=== PATIENT | female | born 1960 | race Caucasian/White ===

== ENCOUNTER → 2020-02-20 | Outpatient (CLI) | payer OTHER ==
[~2020-02-20] MED LIST: SUMA50TA17 PO; [UNRECOGNIZED DRUG - OTHER] PO
== END | disposition home or self-care (01) ==
LOC: RAH 13:21
PROVIDERS: ATTEND Internal Medicine
DX: Z12.31 Encounter for screening mammogram for malignant neoplasm of breast (principal)
CPT/HCPCS: 77067

== ENCOUNTER 2023-02-20 21:06 | Inpatient (IN) | payer OTHER ==
[~2023-02-20] VITALS: Ht 162.6 cm; Wt 99.8 kg
[2023-02-20] MEDS ORDERED: ACETAMINOPHEN 500 MG TABLET ONE (21:18)
[2023-02-20 21:29] LABS: BASOPHILS # (AUTO) 0.02 K/uL (0.00-0.20); BASOPHILS % (AUTO) 0.2 % (0.0-5.0); EOSINOPHILS # (AUTO) 0.01 K/uL (0.00-0.70); EOSINOPHILS % (AUTO) 0.1 % (0.0-8.0); HEMATOCRIT 41.3 % (36-48); IMMATURE GRANULOCYTE ABSOLUTE 0.04 K/uL (0-1); LYMPHOCYTES # (AUTO) 0.6 K/uL (1.0-4.8); LYMPHOCYTES % (AUTO) 6.9 % (21.0-51.0); MEAN CORPUSCULAR HEMOGLOBIN 26.2 pg (27.0-33.0); MEAN CORPUSCULAR HGB CONC 32.4 g/dL (32.0-36.0); MEAN CORPUSCULAR VOLUME 80.8 fL (79-99); MONOCYTES % (AUTO) 0.3 % (3.0-13.0); NEUTROPHILS # (AUTO) 8.3 K/uL (1.8-7.7); NEUTROPHILS % (AUTO) 92.1 % (40.0-77.0); PLATELET COUNT (AUTO) 167 K/uL (130-400); RED BLOOD CELL COUNT(AUTO) 5.11 MIL/uL (4.00-5.50)
[2023-02-20] MEDS ORDERED: CEFTRIAXONE 2GM VIAL IVPB ONE (21:30)
[2023-02-20] MEDS ORDERED: 0.9%NACL 1000ML 1,848 ML IV ONE (21:30)
[2023-02-20] MEDS ORDERED: ACETAMINOPHEN 500 MG TABLET PO ONE (21:30)
[2023-02-20 21:31] LABS: APPEARANCE,URINE CLOUDY (CLEAR); BILIRUBIN,URINE NEGATIVE (NEGATIVE); COLOR,URINE DARK-YELLOW (YELLOW); GLUCOSE, URINE (UA) NEGATIVE (NEGATIVE); KETONES,URINE NEGATIVE (NEGATIVE); LEUKOCYTE ESTERASE ,URINE 250 Leu/uL (NEGATIVE); NITRATE,URINE 2+ (NEGATIVE); OCCULT BLOOD,URINE SMALL (NEGATIVE); PH,URINE 5.5 (5.0-8.0); PROTEIN,URINE 50 mg/dL (NEGATIVE); UROBILINOGEN,URINE 0.2 mg/dL (0.2-1.0)
[2023-02-20] MEDS ORDERED: CEFTRIAXONE 2GM VIAL ONE (21:31)
[2023-02-20 21:32] LABS: ADD UA MICROSCOPIC YES
[2023-02-20 21:33] LABS: BACTERIA,URINE MOD /HPF (None Seen); MUCUS,URINE RARE LPF (None Seen); SQUAMOUS EPITHELIAL CELL,UR RARE /HPF (0-2); WBC,URINE TNTC /HPF (0-1)
[2023-02-20 21:38] LABS: AMPHET/METH SCREEN,URINE NEGATIVE (NEGATIVE); BARBITURATE SCREEN, URINE NEGATIVE (NEGATIVE); BENZODIAZEPINES SCREEN,URINE POSITIVE (NEGATIVE); CANNABINOID SCREEN,URINE NEGATIVE (NEGATIVE); COCAINE SCREEN,URINE NEGATIVE (NEGATIVE); OPIATE SCREEN,URINE POSITIVE (NEGATIVE); PHENCYCLIDINE SCREEN,URINE NEGATIVE (NEGATIVE)
[2023-02-20 21:41] LABS: SARS-CoV-2, RNA, NAAT NEGATIVE SARS CoV-2 (NEGATIVE)
[2023-02-20 21:43] LABS: CREATININE 2.1 mg/dL (0.5-1.5); POTASSIUM 3.5 mmol/L (3.5-5.1)
[2023-02-20 21:46] LABS: INFLUENZA TYPE A Negative For Type A (NEGATIVE)
[2023-02-20 21:48] LABS: ALBUMIN 2.8 g/dL (3.5-5.0); BILIRUBIN,TOTAL 1.2 mg/dL (0.2-1.0); MAGNESIUM 1.5 mg/dL (1.80-2.40); TOTAL PROTEIN, SERUM 6.1 g/dL (6.0-8.3)
[2023-02-20] MEDS ORDERED: MAGNESIUM 2GM PREMIX 50ML 50 ML IV ONE (21:55)
[2023-02-20 21:58] LABS: INFLUENZA TYPE B Positive For Type B (NEGATIVE)
[2023-02-20] MEDS ORDERED: OSELTAMIVIR PHOSPHATE 75 MG CAP ONE (22:00)
[2023-02-20] MEDS ORDERED: OSELTAMIVIR PHOSPHATE 75 MG CAP PO ONE (22:00)
[2023-02-20] MEDS ORDERED: 0.9%NACL 1000ML 1,641 ML IV ONE (22:00)
[2023-02-20] MEDS: MAGNESIUM 2GM PREMIX 50ML 50 ML IV SCH (22:01)
[2023-02-20 22:10] LABS: RAPID GROUP A STREP negative (NEGATIVE)
[2023-02-20] MEDS ORDERED: ONDANSETRON 4MG INJ IVP PRN (23:00)
[2023-02-20] MEDS ORDERED: MORPHINE 2 MG SYG IVP PRN (23:00)
[2023-02-20] MEDS: ZOSYN 3.375GM +NS 50ML IVPB SCH (23:14)
[2023-02-21] MEDS ORDERED: LEVOTHYROXINE 100 MCG TABLET ONE (06:02)
[2023-02-21 08:00] VITALS: BP 99/43; PULSE 90; RESP 19; O2SAT 94
[2023-02-21] MEDS: ACETAMINOPHEN 325 MG TAB PO PRN (09:50)
[2023-02-21 10:30] LABS: CREATININE 1.8 mg/dL (0.5-1.5); POTASSIUM 3.4 mmol/L (3.5-5.1)
[2023-02-21] MEDS: ZOSYN 3.375GM +NS 50ML IVPB SCH (11:23)
[2023-02-21 12:00] VITALS: BP 97/54; PULSE 89; RESP 18
[2023-02-21] MEDS: OSELTAMIVIR PHOSPHATE 75 MG CAP PO SCH (13:58)
[2023-02-21] MEDS ORDERED: IPRATROPIUM/ALBUTEROL SULFATE 3 ML SOLUTION IH PRN (14:30)
[2023-02-21 16:00] VITALS: BP 81/46; PULSE 75; RESP 17
[2023-02-21 16:24] LABS: BASOPHILS # (AUTO) 0.05 K/uL (0.00-0.20); BASOPHILS % (AUTO) 0.2 % (0.0-5.0); EOSINOPHILS # (AUTO) 2.05 K/uL (0.00-0.70); HEMATOCRIT 35.5 % (36-48); IMMATURE GRANULOCYTE ABSOLUTE 0.53 K/uL (0-1); LYMPHOCYTES # (AUTO) 0.7 K/uL (1.0-4.8); LYMPHOCYTES % (AUTO) 2.8 % (21.0-51.0); MEAN CORPUSCULAR HGB CONC 32.7 g/dL (32.0-36.0); MEAN CORPUSCULAR VOLUME 79.6 fL (79-99); MONOCYTES # (AUTO) 0.9 K/uL (0.1-1.0); MONOCYTES % (AUTO) 3.3 % (3.0-13.0); NEUTROPHILS # (AUTO) 21.5 K/uL (1.8-7.7); NEUTROPHILS % (AUTO) 83.6 % (40.0-77.0); PLATELET COUNT (AUTO) 136 K/uL (130-400); RED BLOOD CELL COUNT(AUTO) 4.46 MIL/uL (4.00-5.50); RED CELL DISTRIBUTION WIDTH 15.4 % (11.0-15.5); WHITE BLOOD COUNT (AUTO) 25.7 K/uL (4.8-10.8)
[2023-02-21 19:00] VITALS: PULSE 89; RESP 14; O2SAT 95
[2023-02-21 20:00] VITALS: BP 110/62; PULSE 100; RESP 20
[2023-02-22] VITALS (8 sets, daily range): BP systolic 100–136; BP diastolic 61–81; PULSE 81–100; RESP 18–20; TEMP 101
[2023-02-22] MEDS: ZOSYN 3.375GM +NS 50ML IVPB SCH ×3 (00:49→23:24)
[2023-02-22] MEDS: OSELTAMIVIR PHOSPHATE 75 MG CAP PO SCH ×3 (00:49→23:29)
[2023-02-22] MEDS: ACETAMINOPHEN 325 MG TAB PO PRN ×2 (00:54→17:08)
[2023-02-22 04:58] LABS: HEMATOCRIT 35.4 % (36-48); MEAN CORPUSCULAR HEMOGLOBIN 26.1 pg (27.0-33.0); MEAN CORPUSCULAR HGB CONC 32.2 g/dL (32.0-36.0); MEAN CORPUSCULAR VOLUME 81.2 fL (79-99); RED BLOOD CELL COUNT(AUTO) 4.36 MIL/uL (4.00-5.50); RED CELL DISTRIBUTION WIDTH 15.6 % (11.0-15.5); WHITE BLOOD COUNT (AUTO) 23.7 K/uL (4.8-10.8)
[2023-02-22 05:05] LABS: CREATININE 1.8 mg/dL (0.5-1.5); MAGNESIUM 2.2 mg/dL (1.80-2.40); POTASSIUM 3.7 mmol/L (3.5-5.1)
[2023-02-22 21:27] LABS: INR 0.94 (0.85-1.15); PROTHROMBIN TIME 10.9 SEC (9.6-11.6)
[2023-02-22 21:28] LABS: PARTIAL THROMBOPLASTIN TIME 30.6 SEC (26.3-35.5)
[2023-02-22] MEDS: LACTATED RINGERS 1000ML 1,000 ML IV SCH (21:34)
[2023-02-23] VITALS (8 sets, daily range): BP systolic 119–136; BP diastolic 68–84; PULSE 74–94; RESP 14–20; O2SAT 96–97
[2023-02-23] MEDS ORDERED: LEVO100 PO (01:36)
[2023-02-23] MEDS ORDERED: PREDAOS OS (01:36)
[2023-02-23] MEDS ORDERED: OFLO35OS OS (01:36)
[2023-02-23] MEDS ORDERED: SUMA50TA17 PO (02:19)
[2023-02-23] MEDS ORDERED: SUMATRIPTAN SUCCINATE 25 MG TABLET PO PRN (03:00)
[2023-02-23] MEDS: LACTATED RINGERS 1000ML 1,000 ML IV SCH ×3 (04:16→22:36)
[2023-02-23 05:20] LABS: HEMATOCRIT 32.4 % (36-48); MEAN CORPUSCULAR HEMOGLOBIN 26.2 pg (27.0-33.0); MEAN CORPUSCULAR HGB CONC 33.3 g/dL (32.0-36.0); MEAN CORPUSCULAR VOLUME 78.5 fL (79-99); RED BLOOD CELL COUNT(AUTO) 4.13 MIL/uL (4.00-5.50); RED CELL DISTRIBUTION WIDTH 15.6 % (11.0-15.5); WHITE BLOOD COUNT (AUTO) 18.3 K/uL (4.8-10.8)
[2023-02-23] MEDS: LEVOTHYROXINE 100 MCG TABLET PO SCH (05:27)
[2023-02-23 05:32] LABS: CREATININE 1.3 mg/dL (0.5-1.5); POTASSIUM 3.8 mmol/L (3.5-5.1)
[2023-02-23] MEDS: ZOSYN 3.375GM +NS 50ML IVPB SCH ×2 (10:56→22:37)
[2023-02-23] MEDS: OSELTAMIVIR PHOSPHATE 75 MG CAP PO SCH (13:21)
[2023-02-23] MEDS ORDERED: FUROSEMIDE 40MG VIAL ONE (15:45)
[2023-02-24] VITALS (9 sets, daily range): BP systolic 117–138; BP diastolic 62–88; PULSE 68–88; RESP 14–20; O2SAT 96–97
[2023-02-24] MEDS: OSELTAMIVIR PHOSPHATE 75 MG CAP PO SCH ×2 (01:32→16:43)
[2023-02-24 05:16] LABS: HEMATOCRIT 33.2 % (36-48); MEAN CORPUSCULAR HEMOGLOBIN 26.1 pg (27.0-33.0); MEAN CORPUSCULAR HGB CONC 32.5 g/dL (32.0-36.0); MEAN CORPUSCULAR VOLUME 80.2 fL (79-99); RED BLOOD CELL COUNT(AUTO) 4.14 MIL/uL (4.00-5.50); RED CELL DISTRIBUTION WIDTH 15.5 % (11.0-15.5); WHITE BLOOD COUNT (AUTO) 12.9 K/uL (4.8-10.8)
[2023-02-24 05:21] LABS: CREATININE 1.3 mg/dL (0.5-1.5); MAGNESIUM 1.8 mg/dL (1.80-2.40); POTASSIUM 3.4 mmol/L (3.5-5.1)
[2023-02-24] MEDS: MAGNESIUM 2GM PREMIX 50ML 50 ML IV SCH (06:30)
[2023-02-24] MEDS: LEVOTHYROXINE 100 MCG TABLET PO SCH (06:30)
[2023-02-24 10:36] LABS: INR 0.93 (0.85-1.15)
[2023-02-24] MEDS: ZOSYN 3.375GM +NS 50ML IVPB SCH (11:02)
[2023-02-24] MEDS: KCL 20 MEQ ERTAB PO PRN ×2 (15:00→17:25)
[2023-02-24] MEDS ORDERED: POTASSIUM CHLORIDE 10% ELIXIR 20 MEQ/15 ML UDCUP PO PRN (16:30)
[2023-02-24] MEDS ORDERED: POTASSIUM CHLORIDE 20MEQ/100ML 100 ML IV PRN (16:30)
[2023-02-24] MEDS: LACTATED RINGERS 1000ML 1,000 ML IV SCH ×2 (16:43→20:56)
[2023-02-25] VITALS (11 sets, daily range): BP systolic 109–164; BP diastolic 54–82; PULSE 69–83; RESP 16–20; O2SAT 97
[2023-02-25] MEDS: ZOSYN 3.375GM +NS 50ML IVPB SCH ×3 (00:44→22:22)
[2023-02-25] MEDS: OSELTAMIVIR PHOSPHATE 75 MG CAP PO SCH ×2 (01:21→15:34)
[2023-02-25] MEDS: LACTATED RINGERS 1000ML 1,000 ML IV SCH ×2 (02:13→22:28)
[2023-02-25] MEDS: LEVOTHYROXINE 100 MCG TABLET PO SCH ×2 (06:44→07:49)
[2023-02-25 09:27] LABS: HEMATOCRIT 33.1 % (36-48); MEAN CORPUSCULAR HEMOGLOBIN 25.7 pg (27.0-33.0); MEAN CORPUSCULAR VOLUME 80.1 fL (79-99); RED BLOOD CELL COUNT(AUTO) 4.13 MIL/uL (4.00-5.50); RED CELL DISTRIBUTION WIDTH 15.7 % (11.0-15.5); WHITE BLOOD COUNT (AUTO) 9.2 K/uL (4.8-10.8)
[2023-02-25 09:34] LABS: CREATININE 1.2 mg/dL (0.5-1.5); POTASSIUM 3.7 mmol/L (3.5-5.1)
[2023-02-25 09:38] LABS: INR 0.93 (0.85-1.15); PROTHROMBIN TIME 10.2 SEC (9.6-11.6)
[2023-02-25] MEDS ORDERED: IOHEXOL-350 50ML VIAL IV ONE (10:10)
[2023-02-25] MEDS ORDERED: LIDOCAINE HCL 1% MDV 50ML VIAL ONE (10:11)
[2023-02-25] MEDS ORDERED: FENTANYL CITRATE PF 50 MCG/1 ML 2ML VIAL ONE (10:19)
[2023-02-25] MEDS ORDERED: MIDAZOLAM HCL 1 MG/ML 2ML VIAL ONE (10:20)
[2023-02-25] MEDS ORDERED: ISOVUE-300 100 ML VIAL IV ONE (16:29)
[2023-02-25] MEDS: ACETAMINOPHEN 325 MG TAB PO PRN (19:38)
[2023-02-26] MEDS: OSELTAMIVIR PHOSPHATE 75 MG CAP PO SCH (01:45)
[2023-02-26] MEDS: ACETAMINOPHEN 325 MG TAB PO PRN ×2 (01:47→09:23)
[2023-02-26 04:24] VITALS: BP 149/71; PULSE 69; RESP 18
[2023-02-26 07:05] VITALS: BP 127/71; PULSE 72; RESP 19
[2023-02-26 07:35] VITALS: O2SAT 94
[2023-02-26] MEDS: ZOSYN 3.375GM +NS 50ML IVPB SCH (10:52)
[2023-02-26 11:00] VITALS: BP 127/73; PULSE 77; RESP 18
== END 2023-02-26 16:30 | disposition home or self-care (01) | DRG 872 ==
LOC: EDH 21:06 → EDHIP 22:33 → 3CH 02-21 00:05
PROVIDERS: ADMIT Internal Medicine Infectious Disease; ATTEND Internal Medicine Infectious Disease
PROC: 0T9030Z Drainage of Right Kidney with Drainage Device, Percutaneous Approach (ICD-10-PCS; principal; 2023-02-25)
PROC: 02HV33Z Insertion of Infusion Device into Superior Vena Cava, Percutaneous Approach (ICD-10-PCS; 2023-02-25)
DX: A41.51 Sepsis due to Escherichia coli [E. coli] (principal); E87.20 Acidosis, unspecified; N13.6 Pyonephrosis; N17.9 Acute kidney failure, unspecified; N20.2 Calculus of kidney with calculus of ureter; Z20.822 Contact with and (suspected) exposure to COVID-19; J10.1 Influenza due to other identified influenza virus with other respiratory manifestations; E66.09 Other obesity due to excess calories; Z87.442 Personal history of urinary calculi; Z96.642 Presence of left artificial hip joint; Z68.37 Body mass index [BMI] 37.0-37.9, adult
CPT/HCPCS: 10030; 36415; 50432; 71045; 74176; 78708; 80048; 80053; 80305; 81001; 83605; 83735; 84484; 85025; 85027; 85610; 85730; 87040; 87077; 87088; 87186; 87635; 87804; 87880; 93005; 99156; 99157; A9562; C1729; C1769; C1894; C9803; G0378; J0696; J1940; J2250; J2270; J2543; J3010; J3475; J3490; Q9967

== ENCOUNTER → 2023-03-18 | Outpatient (CLI) | payer OTHER ==
[~2023-03-18] MED LIST changes: +LEVO100 PO; +OFLO35OS OS; +PREDAOS OS
== END | disposition home or self-care (01) ==
LOC: RAH 10:35
PROVIDERS: ATTEND Urology
DX: N20.0 Calculus of kidney (principal); M47.815 Spondylosis without myelopathy or radiculopathy, thoracolumbar region; Z96.642 Presence of left artificial hip joint
CPT/HCPCS: 74018; 76100

== ENCOUNTER 2023-04-25 10:48 | Day surgery (SDC) | payer OTHER ==
[2023-04-22 14:34] LABS: BASOPHILS # (AUTO) 0.04 K/uL (0.00-0.20); BASOPHILS % (AUTO) 0.4 % (0.0-5.0); EOSINOPHILS # (AUTO) 0.22 K/uL (0.00-0.70); HEMATOCRIT 42.6 % (36-48); IMMATURE GRANULOCYTE ABSOLUTE 0.04 K/uL (0-1); LYMPHOCYTES # (AUTO) 2.9 K/uL (1.0-4.8); LYMPHOCYTES % (AUTO) 25.9 % (21.0-51.0); MEAN CORPUSCULAR HEMOGLOBIN 26.3 pg (27.0-33.0); MEAN CORPUSCULAR HGB CONC 30.5 g/dL (32.0-36.0); MEAN CORPUSCULAR VOLUME 86.2 fL (79-99); MONOCYTES # (AUTO) 0.6 K/uL (0.1-1.0); MONOCYTES % (AUTO) 5.6 % (3.0-13.0); NEUTROPHILS # (AUTO) 7.4 K/uL (1.8-7.7); NEUTROPHILS % (AUTO) 65.7 % (40.0-77.0); PLATELET COUNT (AUTO) 254 K/uL (130-400); RED BLOOD CELL COUNT(AUTO) 4.94 MIL/uL (4.00-5.50); RED CELL DISTRIBUTION WIDTH 14.8 % (11.0-15.5); WHITE BLOOD COUNT (AUTO) 11.2 K/uL (4.8-10.8)
[2023-04-22 14:37] VITALS: BP 144/79; PULSE 77; RESP 18
[2023-04-22 14:42] LABS: POTASSIUM 4.1 mmol/L (3.5-5.1)
[2023-04-22 14:45] LABS: INR < 0.93 (0.85-1.15); PROTHROMBIN TIME 10.3 SEC (9.6-11.6)
[2023-04-22 14:46] LABS: PARTIAL THROMBOPLASTIN TIME 26.1 SEC (26.3-35.5)
[~2023-04-25] VITALS: Ht 162.6 cm; Wt 98.3 kg
[~2023-04-25 10:48] MED LIST changes: -OFLO35OS OS; -[UNRECOGNIZED DRUG - OTHER] PO
[2023-04-25 11:05] VITALS: BP 164/74; PULSE 60; RESP 18
[2023-04-25] MEDS ORDERED: 0.9%NACL 1000ML 1,000 ML IV ONE (11:08)
[2023-04-25] MEDS ORDERED: IOHEXOL-350 50ML VIAL IV ONE (12:49)
[2023-04-25] MEDS ORDERED: LIDOCAINE HCL 400MG/20ML VIAL ONE (13:07)
== END 2023-04-25 13:55 | disposition home or self-care (01) ==
LOC: DAH 10:48
PROVIDERS: ATTEND Urology
DX: N20.0 Calculus of kidney (principal); E03.9 Hypothyroidism, unspecified; M81.0 Age-related osteoporosis without current pathological fracture; Z79.899 Other long term (current) drug therapy; Z79.01 Long term (current) use of anticoagulants; Z98.890 Other specified postprocedural states; Z98.49 Cataract extraction status, unspecified eye
CPT/HCPCS: 80048; 85025; 85610; 85730; 36415; 50431; C1769; J3490; J7030; J1644; Q9967; A4215; A4222; A4221; A4663; A4216; A4606; A4223 ×3

== ENCOUNTER → 2024-07-12 | Outpatient (CLI) | payer OTHER ==
--- NOTE | 2024-07-12 10:31 | HMCIMG ---
THYROID ULTRASOUND History: Hypothyroidism Comparison: None Findings: Thyroid lobes are heterogeneous. There is a slightly complex cyst of the right upper interpolar region measuring 3 mm. The right lobe measures 2.4 x 0.9 x 1 cm. The left lobe measures 2.9 x 0.7 x 1.1 cm. The isthmus measures 2 mm. No fluid collections are seen. IMPRESSION: Probably benign nodule right side. 1 year follow-up recommended.
== END | disposition home or self-care (01) ==
LOC: RAH 09:25
PROVIDERS: ATTEND Internal Medicine
DX: E03.9 Hypothyroidism, unspecified (principal)
CPT/HCPCS: 76536

== ENCOUNTER → 2025-05-02 | Outpatient (CLI) | payer OTHER ==
--- NOTE | 2025-05-08 16:17 | HMCIMG ---
CR THORACIC SPINE, 3 VIEW Clinical History: Lumbago with sciatica, right side Technique: Three-view conventional radiographs of the thoracic spine were obtained. Findings: Bones: No acute fracture or aggressive appearing osseous lesion is identified. Degenerative thoracic spondylosis is noted with anterior marginal bridging osteophytes and endplate sclerosis. Discs / Degenerative Changes: The disc spaces are preserved without significant narrowing or herniation. Soft Tissues: The paraspinal soft tissue lines are unremarkable. The visualized lungs are clear. Miscellaneous: Visualization of the upper thoracic spine is limited on the lateral view by overlying structures. Impression: * Degenerative thoracic spondylosis with anterior marginal bridging osteophytes and endplate sclerosis. * No acute thoracic spine osseous abnormality. /[place]
--- NOTE | 2025-05-08 16:18 | HMCIMG ---
CR RIGHT HIP, 3 VIEW Clinical History: Lumbago with sciatica, right side Findings: Bones: No acute fracture or aggressive appearing osseous lesion is identified. Degenerative changes are noted along the bilateral sacro-iliac joints. Joints: No dislocation is seen. The left hip shows arthroplasty with no hardware related complications. The right hip demonstrates moderate osteoarthritis characterized by reduced joint space and irregularities along the articular margins. Articular osteophytosis is present at the right hip joint. Soft Tissues: The soft tissues appear unremarkable. IMPRESSION: 1. No acute osseous injury. 2. Moderate right hip osteoarthritis. /[place]
--- NOTE | 2025-05-08 16:18 | HMCIMG ---
DX - SACROILIAC JNTS <3 VWS Clinical History: Lumbago with sciatica, right side. Findings: BONES: No acute fracture or aggressive appearing osseous lesion is identified. Bony alignment is anatomic. Degenerative changes are noted along bilateral sacro-iliac joints. Left hip arthroplasty is present with no hardware related complications. The right hip demonstrates moderate osteoarthritis characterized by reduced joint space and irregularities along the articular margins. Articular osteophytosis is seen on the right hip. SOFT TISSUES: The soft tissues are unremarkable. Impression: * Degenerative changes along bilateral sacro-iliac joints. * Left hip arthroplasty without hardware complications. * Moderate osteoarthritis of the right hip with reduced joint space, articular margin irregularity, and osteophytosis. * No acute osseous abnormality. /[place]
--- NOTE | 2025-05-08 16:19 | HMCIMG ---
CR LUMBAR SPINE, 2 VIEW Clinical History: Lumbago with sciatica, right side Technique: Two standard radiographic views of the lumbar spine were obtained. Findings: Bones: No acute fracture or aggressive appearing osseous lesion. Moderate degenerative lumbar spondylosis is present characterized by marginal osteophytes and endplate sclerosis. Alignment: Alignment shows grade I anterior spondylolisthesis of L4 over L5. No significant scoliosis noted. Discs / Degenerative Changes: The disc spaces are preserved. Facet joint degeneration is noted at L4-L5 and L5-S1 levels. Soft Tissues: The soft tissues are unremarkable. IMPRESSION: 1. No acute osseous injury. 2. Grade I anterior spondylolisthesis of L4 over L5. 3. Moderate lumbar spondylosis with osteophytes, endplate sclerosis, and facet joint degeneration at L4-L5 and L5-S1. /[place]
== END | disposition home or self-care (01) ==
LOC: RAH 10:41
PROVIDERS: ATTEND Family Medicine
DX: M47.817 Spondylosis without myelopathy or radiculopathy, lumbosacral region (principal); M43.16 Spondylolisthesis, lumbar region; M25.78 Osteophyte, vertebrae; M53.3 Sacrococcygeal disorders, not elsewhere classified; M16.11 Unilateral primary osteoarthritis, right hip; M25.751 Osteophyte, right hip; M47.814 Spondylosis without myelopathy or radiculopathy, thoracic region; M54.41 Lumbago with sciatica, right side; Z96.641 Presence of right artificial hip joint
CPT/HCPCS: 72070; 72100; 72200; 73502